=== PATIENT | female | born 1940 | race Hispanic/Latino ===

== ENCOUNTER 2017-09-21 15:26 | Emergency (ER) | payer OTHER, MEDICARE ==
--- OUTSIDE RECORDS SUMMARY | 2017-09-21 15:28 | XMS REPORT | Clinical Summary ---
:1940 Author Organization [facility] Address [address] [place] [address] Care Team Providers Name Role Phone Sukhdeep Maloney MD Primary Care Provider Allergies No Known Allergies Current Medications Prescription Sig. Disp. Refills Start Date End Date Status atorvastatin 11/20/2015 Active (LIPITOR) 20 MG tablet sodium,potassium,mag Dispense one 354 mL 0 03/17/2017 Active sulfates (SUPREP kit, pt to use BOWEL PREP KIT) as directed. 17.5-3.13-1.6 gram recon solnIndications: Colon cancer screening esomeprazole (NexIUM) Take 1 capsule 90 capsule 3 03/17/2017 03/17/19 Active 40 MG (40 mg total) 19 capsuleIndications: by mouth daily Gastroesophageal before reflux disease with breakfast. esophagitis esomeprazole (NexIUM) Take 1 capsule 90 capsule 3 01/10/2016 01/10/20 40 MG (40 mg total) 17 capsuleIndications: by mouth daily Gastroesophageal before reflux disease, breakfast. esophagitis presence not specified esomeprazole (NexIUM) Take 1 capsule 30 capsule 0 02/27/2017 03/17/19 Discontinued 40 MG (40 mg total) 18 capsuleIndications: by mouth daily Gastroesophageal before reflux disease with breakfast for esophagitis 30 days. Active Problems Not on file Encounters Date Type Specialty Care Team Description 04/04/2017 Telephone GastroenterKelly Ramírez MA 04/01/2017 Lab Lab Wolfgang Silverman MD 03/17/2017 Office Visit GastroenterWolfgang Don Gastroesophageal reflux disease, esophagitis presence not specified (Primary Dx); MD Art Colon cancer screening; Gastroesophageal reflux disease with esophagitis 02/27/2017 Orders Only Gastroenterology Kelly Mcclain, Gastroesophageal reflux MA disease with esophagitis (Primary Dx) after 09/20/2016 Family History Medical History Relation Name Comments Pancreatic cancer Brother Diabetes Father Heart disease Father Diabetes Mother Stroke Mother Lupus Sister Colon polyps Sister Relation Name Status Comments Brother Father Alive Mother Sister Alive Sister Social History Tobacco Use Types Packs/Day Years Used Date Never Smoker Smokeless Tobacco: Never Used Alcohol Use Drinks/Week oz/Week Comments Yes Sex Assigned at Date Recorded Not on file Last Filed Vital Signs Vital Sign Reading Time Taken Blood Pressure 157/87 03/17/2017 3:15 PM [facility] Pulse 92 03/17/2017 3:15 PM [facility] Temperature 36.7 C (98 F) 03/17/2017 3:15 PM [facility] Respiratory Rate - - Oxygen Saturation - - Inhaled Oxygen Concentration - - Weight 98 kg (216 lb) 03/17/2017 3:15 PM [facility] Height 172.7 cm (5' 8") 03/17/2017 3:15 PM [facility] Body Mass Index 32.84 03/17/2017 3:15 PM [facility] Plan of Treatment Health Maintenance Due Date Last Done Comments BREAST CANCER SCREENING 1992 COLON CANCER SCREENING 1992 SHINGRIX VACCINE (#1) 1992 ZOSTER VACCINE 2002 PNEUMOCOCCAL POLYSACCHARIDE VACCINE AGE 65 AND OVER 07/30/2007 PNEUMOCOCCAL-13 07/30/2007 INFLUENZA VACCINE 09/24/2017 Procedures Procedure Name Priority Date/Time Associated Diagnosis Comments SURGICAL PATHOLOGY Routine 04/01/2017 1:52 PM Results for this REQUEST [facility] procedure are in the results section. after 09/20/2016 Results Surgical pathology request (04/01/2017 1:52 PM) [facility] DEPARTMENT OF PATHOLOGY AND GENOMIC MEDICINE Surgical pathology report See link below for PDF [facility] DEPARTMENT OF Lab Report PATHOLOGY AND GENOMIC MEDICINE Result status This is Final Report to [facility] DEPARTMENT OF [id number] PATHOLOGY AND GENOMIC MEDICINE Performing Organization Address City/State/Zipcode Phone Number [facility] DEPARTMENT OF PATHOLOGY AND [address] [place] [address] GENOMIC MEDICINE after 09/20/2016 Insurance Payer Benefit Plan / Group Subscriber ID Type Phone Address MEDICARE MEDICARE PART A AND B xxxxxxxxxx Medicare [place], [place] AARP AARP SUPPLEMENT xxxxxxxxx-xx Commercial Home: [address] [phone] [place], [place] [id number]
[2017-09-21] MEDS ORDERED: METOCLOPRAMIDE 10 MG/2mL INJ ONE (16:11)
[2017-09-21] MEDS ORDERED: NA CHLORIDE 0.9% 1,000 ML ONE ×2 (16:12→18:23)
[2017-09-21 16:45] LABS: Absolute Lymphocytes (CBC) 0.3 K/uL (0.7-4.9); Absolute Monocytes 0.5 K/uL (0.1-1.3); Absolute Neutrophil 11.3 K/uL (1.8-8.0); Basophils % 0.2 % (0-1.3); Eosinophils % 0.5 % (0-4.4); Lymphocytes % 2.3 % (15.3-44.8); MCH 30.2 pg (27.0-35.0); MPV 8.5 fL (7.6-11.3); Monocytes % 3.9 % (3.3-12.3)
[2017-09-21 16:59] LABS: Albumin 3.5 g/dL (3.4-5.0); Bilirubin Direct 0.1 mg/dL (0-0.2); Bilirubin Total 0.6 mg/dL (0.2-1.0); Potassium 4.2 mmol/L (3.5-5.1); Protein, Total 7.7 g/dL (6.4-8.2)
[2017-09-21 17:23] LABS: Blood Morphology Comment NOT SEEN (NOT SEEN); Platelet Estimate ADEQ
--- NOTE | 2017-09-21 17:50 | RAD REPORT ---
EXAM DESCRIPTION: CT - Abdomen Pelvis W Contrast - 09/21/2017 5:33 pm CLINICAL HISTORY: Abdominal pain, nausea and vomiting COMPARISON: None. TECHNIQUE: Biphasic, helical CT imaging of the abdomen and pelvis was performed following 100 ml non -ionic IV contrast. No oral contrast was given. All CT scans are performed using dose optimization technique as appropriate and may include automated exposure control or mA/KV adjustment according to patient size. FINDINGS: No suspicious findings in the lung bases. The liver, spleen, and pancreas show no suspicious findings. Liver attenuation shows mild diffuse fat ty infiltration. No gallbladder or biliary tree finding. Symmetric renal function is seen with no hydronephrosis or suspicious renal mass. No pyelonephritis o r acute renal parenchymal process. Mostly contracted urinary bladder shows no suspicious finding. No dilated bowel loops or bowel wall thickening. Prominent colonic diverticulosis is present most pro nounced in the sigmoid. No diverticulitis. No free air, free fluid or inflammatory stranding. No mas s or bulky lymphadenopathy. A very small fat filled umbilical hernia is present. No adrenal abnormali ty. No suspicious bony findings. IMPRESSION: Prominent colonic diverticulosis without diverticulitis or other acute GI process. No pyelonephritis or acute finding. Liver attenuation is mildly fatty infiltrated.
[2017-09-21] MEDS ORDERED: LIDOCAINE VISCOUS 2% SOLN 15 ML UDC ONE (18:23)
[2017-09-21] MEDS ORDERED: MAGNE/ALUM HYDROXD 30 ML UCUP ONE (18:23)
--- NOTE | 2017-09-21 18:44 | ER ---
Nurse's Notes [facility] Name: Ashley Vaca Age: 77 yrs Sex: Female : 1940 Arrival Date: 09/21/2017 Time: 15:27 Bed 5 Private MD: Sukhdeep Maloney Diagnosis: Nausea and vomiting;Diarrhea, unspecified;Acute pharyngitis;Dehydration Presentation: 09/21 15:35 Presenting complaint: Patient states: N/V/D today. Transition of care: patient was not aj received from another setting of care. Onset of symptoms was September 21, 2017. Risk Assessment: Do you want to hurt yourself or someone else? Patient reports no desire to harm self or others. Initial Sepsis Screen: Does the patient meet any 2 criteria? No. Patient's initial sepsis screen is negative. Does the patient have a suspected source of infection? No. Patient's initial sepsis screen is negative. Care prior to arrival: None. 15:35 Method Of Arrival: Wheelchair aj 15:35 Acuity: LORENE 3 aj Triage Assessment: 15:36 General: Appears in no apparent distress. comfortable, Behavior is calm, cooperative, aj appropriate for age. Pain: Denies pain. Neuro: Level of Consciousness is awake, alert, obeys commands, Oriented to person, place, time, situation, Appropriate for age. Respiratory: Airway is patent Respiratory effort is even, unlabored, Respiratory pattern is regular, symmetrical. GI: Reports diarrhea, nausea, vomiting. Derm: Skin is intact, is healthy with good turgor, Skin is pink, warm \T\ dry. normal. Historical: - Allergies: 15:36 No Known Allergies; aj - Home Meds: 15:36 Unknown GERD med [Active]; aj - PMHx: 15:36 GERD; Hyperlipidemia; aj - PSHx: 15:36 back; aj - Immunization history:: Adult Immunizations up to date. - Social history:: Smoking status: Patient/guardian denies using tobacco. - Ebola Screening: : Patient negative for fever greater than or equal to 101.5 degrees Fahrenheit, and additional compatible Ebola Virus Disease symptoms Patient denies exposure to infectious person Patient denies travel to an Ebola-affected area in the 21 days before illness onset No symptoms or risks identified at this time. Screenin:49 Abuse screen: Denies threats or abuse. Denies injuries from another. Nutritional ph screening: No deficits noted. Tuberculosis screening: No symptoms or risk factors identified. Fall Risk None identified. Assessment: 15:45 General: Appears in no apparent distress. comfortable, well groomed, Behavior is calm, ph cooperative, appropriate for age, Denies fever. Pain: Complains of pain in throat. Neuro: Level of Consciousness is awake, alert, obeys commands, Oriented to person, place, time, situation. Cardiovascular: Capillary refill < 3 seconds Patient's skin is warm and dry. Respiratory: Airway is patent Respiratory effort is even, unlabored. GI: Abdomen is round non-distended, Bowel sounds present X 4 quads. Abd is soft and non tender X 4 quads. Reports diarrhea, nausea, vomiting, Patient currently denies abdominal pain. EENT: Throat is reddened Reports pain when swallowing. Derm: Skin is intact, is healthy with good turgor, Skin is pink, warm \T\ dry. Musculoskeletal: Circulation, motion, and sensation intact. Range of motion: intact in all extremities. 17:00 Reassessment: Patient appears in no apparent distress at this time. Patient and/or ph family updated on plan of care and expected duration. Pain level reassessed. Patient is alert, oriented x 3, equal unlabored respirations, skin warm/dry/pink. 18:00 Reassessment: Patient appears in no apparent distress at this time. Patient and/or ph family updated on plan of care and expected duration. Pain level reassessed. Patient is alert, oriented x 3, equal unlabored respirations, skin warm/dry/pink. 18:45 Reassessment: Patient appears in no apparent distress at this time. Patient and/or ph family updated on plan of care and expected duration. Pain level reassessed. Patient is alert, oriented x 3, equal unlabored respirations, skin warm/dry/pink. d/c pending completion of IV fluids. 19:15 Reassessment: Patient is to be discharge after NS is complete as requested by clive Goins [employer]. 20:05 Reassessment: DC instructions given to patient. Patient agree with the POC and to keep ph her self hydrated. Patient agree to comeback to the ER if continue to vomit or diarrhea that is not controlled at home. Patient agree to follow up with PCP. Vital Signs: 15:36 BP 135 / 69; Pulse 120; Resp 20; Temp 98.5; Pulse Ox 95% on R/A; Weight 99.79 kg; aj Height 5 ft. 9 in. (175.26 cm); 16:30 BP 137 / 72; Pulse 113; Resp 16; Pulse Ox 98% on R/A; ph 17:30 BP 141 / 76; Pulse 111; Resp 18; Pulse Ox 98% on R/A; ph 18:57 BP 140 / 75; Pulse 109; Resp 18; Pulse Ox 97% on R/A; ph 19:15 BP 152 / 74; Pulse 106; Resp 18; Pulse Ox 100% on R/A; Pain 0/10; ph 15:36 Body Mass Index 32.49 (99.79 kg, 175.26 cm) aj ED Course: 15:27 Patient arrived in ED. as 15:27 Sukhdeep Maloney MD is Private Physician. as 15:35 Triage completed. aj 15:36 Arm band placed on left wrist. Patient placed in an exam room. aj 15:43 Casey Santana NP is PHCP. pm1 15:43 Stanislaw Sousa MD is Attending Physician. pm1 16:05 Coty Alba RN is Primary Nurse. ph 16:20 Initial lab(s) drawn, by me, sent to lab. Strep swab sent to lab. Inserted saline lock: ph 22 gauge in left antecubital area, using aseptic technique. Blood collected. 16:36 Radiology exam delayed due to lab results not completed at this time. (BUN/Creatinine) kw1 IV insertion attempt and/or patient not having appropriate IV at this time. 16:49 Patient has correct armband on for positive identification. Placed in gown. Bed in low ph position. Call light in reach. Side rails up X 1. Pulse ox on. NIBP on. 16:49 No provider procedures requiring assistance completed. ph 16:54 EKG done, by ED staff, reviewed by Casey Santana NP. em1 17:33 CT completed. Patient moved to CT via wheelchair. Patient moved back from CT. cw1 17:33 CT Abd/Pelvis - W/Contrast In Process Unspecified. EDMS 18:43 Sukhdeep Maloney MD is Referral Physician. pm1 19:55 IV discontinued, intact, bleeding controlled, No redness/swelling at site. Pressure ph dressing applied. Administered Medications: 16:35 Drug: Reglan 5 mg Route: IVP; Site: left antecubital; ph 19:29 Follow up: Response: No adverse reaction; Nausea is decreased ph 16:35 Drug: NS 0.9% 1000 ml Route: IV; Rate: 1000 ml; Site: left antecubital; ph 19:28 Follow up: Response: No adverse reaction; IV Status: Completed infusion ph 18:31 Not Given (Other Intervention Used): NS 0.9% 1000 ml IV at 125 ml/hr continuous ph 18:31 Drug: GI Cocktail without - (Maalox Suspension 30 ml, Lidocaine Liquid 2 % 15 ph ml) Route: PO; 19:28 Follow up: Response: No adverse reaction; Pain is decreased ph 18:31 Drug: NS 0.9% 1000 ml Route: IV; Rate: 1000 ml; Site: left antecubital; ph 19:28 Follow up: Response: No adverse reaction; IV Status: Completed infusion ph Outcome: 18:44 Discharge ordered by . pm1 19:45 Patient left the ED. ph 19:45 Discharged to home ambulatory. 19:45 Condition: stable 19:45 Discharge instructions given to patient, Instructed on discharge instructions, follow up and referral plans. Demonstrated understanding of instructions, follow-up care, medications, Prescriptions given X 1. Signatures: Dispatcher [employer] EDMS Brenda Berg RN Breonna Mei Eric em1 Neyda George cw1 Coty Alba RN RN ph Marinas, Patrick, NP [employer] pm1 Charlene Werner kw1 Corrections: (The following items were deleted from the chart) 20:05 19:55 Condition: stable ph ph 20:05 19:55 Discharged to home ambulatory, ph ph 20:05 19:55 Discharge instructions given to patient, Instructed on discharge instructions, ph follow up and referral plans. Demonstrated understanding of instructions, follow-up care, medications, Prescriptions given X 1, ph 20:05 19:57 Patient left the ED. ph ph
--- NOTE | 2017-09-21 18:44 | EDPHYS ---
Physician Documentation [facility] Name: Ashley Vaca Age: 77 yrs Sex: Female : 1940 Arrival Date: 09/21/2017 Time: 15:27 Bed 5 Private MD: Sukhdeep Maloney ED Physician Stanislaw Sousa HPI: 09/21 17:43 This 77 yrs old Female presents to ER via Wheelchair with complaints of Sore pm1 throat, Vomiting and Diarrhea. 17:43 The patient presents to the emergency department with nausea, vomiting, 5 times since pm1 the onset of symptoms, 5 times today, diarrhea, 5 times since the onset of symptoms, 5 times today. Onset: The symptoms/episode began/occurred Vomiting and diarrhea onset this AM. Sore throat present for 1 week. Possible causes: sick contacts, from grandchildren. The symptoms are aggravated by nothing. The symptoms are alleviated by nothing. Associated signs and symptoms: Pertinent positives: sore throat, Pertinent negatives: abdominal pain, fever. The patient has not recently seen a physician. Patient with onset of sore throat 1 week ago. Today with onset of vomiting and diarrhea. 5 episodes of each. Patient believes that she might have contracted something from her grandchildren who were visiting. Patient with current pain to throat. Patient without any current abdominal pain but reports some cramping when she has diarrhea or vomiting . Historical: - Allergies: 15:36 No Known Allergies; aj - Home Meds: 15:36 Unknown GERD med [Active]; aj - PMHx: 15:36 GERD; Hyperlipidemia; aj - PSHx: 15:36 back; aj - Immunization history:: Adult Immunizations up to date. - Social history:: Smoking status: Patient/guardian denies using tobacco. - Ebola Screening: : Patient negative for fever greater than or equal to 101.5 degrees Fahrenheit, and additional compatible Ebola Virus Disease symptoms Patient denies exposure to infectious person Patient denies travel to an Ebola-affected area in the 21 days before illness onset No symptoms or risks identified at this time. ROS: 17:43 Constitutional: Negative for fever, chills, and weight loss, Eyes: Negative for injury, pm1 pain, redness, and discharge, Neck: Negative for injury, pain, and swelling. 17:43 Cardiovascular: Negative for chest pain, palpitations, and edema, Respiratory: Negative for shortness of breath, cough, wheezing, and pleuritic chest pain. 17:43 Back: Negative for injury and pain, : Negative for injury, bleeding, discharge, and swelling, MS/Extremity: Negative for injury and deformity, Skin: Negative for injury, rash, and discoloration, Neuro: Negative for headache, weakness, numbness, tingling, and seizure. 17:43 ENT: Positive for sore throat, Negative for ear pain, difficulty swallowing, difficulty handling secretions, hoarseness. 17:43 Abdomen/GI: Positive for nausea, vomiting, and diarrhea, Negative for abdominal pain. Exam: 17:43 Constitutional: This is a well developed, well nourished patient who is awake, alert, pm1 and in no acute distress. Head/Face: Normocephalic, atraumatic. Eyes: Pupils equal round and reactive to light, extra-ocular motions intact. Lids and lashes normal. Conjunctiva and sclera are non-icteric and not injected. Cornea within normal limits. Periorbital areas with no swelling, redness, or edema. Neck: Trachea midline, no thyromegaly or masses palpated, and no cervical lymphadenopathy. Supple, full range of motion without nuchal rigidity, or vertebral point tenderness. No Meningismus. 17:43 Chest/axilla: Normal chest wall appearance and motion. Nontender with no deformity. No lesions are appreciated. Cardiovascular: Regular rate and rhythm with a normal S1 and S2. No gallops, murmurs, or rubs. No pulse deficits. Respiratory: Lungs have equal breath sounds bilaterally, clear to auscultation and percussion. No rales, rhonchi or wheezes noted. No increased work of breathing, no retractions or nasal flaring. Back: No spinal tenderness. No costovertebral tenderness. Full range of motion. Skin: Warm, dry with normal turgor. Normal color with no rashes, no lesions, and no evidence of cellulitis. 17:43 MS/ Extremity: Pulses equal, no cyanosis. Neurovascular intact. Full, normal range of motion. 17:43 ENT: External ear(s): are unremarkable, Ear canal(s): are normal, TM's: are normal, Nose: is normal, Mouth: is normal, Posterior pharynx: Airway: normal, no evidence of obstruction, patent, Tonsils: are normal in appearance, no enlargement, no erythema, no exudate, no ulcerations, swelling, is not appreciated, erythema, that is mild, peritonsillar mass, is not appreciated, pooling of secretions, is not appreciated. 17:43 Abdomen/GI: Inspection: abdomen appears normal, Bowel sounds: normal, Palpation: abdomen is soft and non-tender, in all quadrants. 17:43 Neuro: Orientation: is normal, Motor: is normal, moves all fours. Vital Signs: 15:36 BP 135 / 69; Pulse 120; Resp 20; Temp 98.5; Pulse Ox 95% on R/A; Weight 99.79 kg; aj Height 5 ft. 9 in. (175.26 cm); 16:30 BP 137 / 72; Pulse 113; Resp 16; Pulse Ox 98% on R/A; ph 17:30 BP 141 / 76; Pulse 111; Resp 18; Pulse Ox 98% on R/A; ph 18:57 BP 140 / 75; Pulse 109; Resp 18; Pulse Ox 97% on R/A; ph 19:15 BP 152 / 74; Pulse 106; Resp 18; Pulse Ox 100% on R/A; Pain 0/10; ph 15:36 Body Mass Index 32.49 (99.79 kg, 175.26 cm) aj MDM: 15:46 Patient medically screened. pm1 18:30 ED course: Lipase elevated but lab does not correlate with physical assessment and pm1 presentation. CT scan negative for pancreatitis. Patient without any abdominal pain with palpation. Discussed findings with Dr. Sousa and agrees that patient does not have pancreatitis and can be discharged home to follow up with PCP. 18:42 Data reviewed: vital signs. Data interpreted: Pulse oximetry: on room air is 95 %. pm1 Interpretation: normal. Counseling: I had a detailed discussion with the patient and/or guardian regarding: the historical points, exam findings, and any diagnostic results supporting the discharge/admit diagnosis, lab results, radiology results, the need for outpatient follow up, to return to the emergency department if symptoms worsen or persist or if there are any questions or concerns that arise at home. 09/21 15:39 Order name: Basic Metabolic Panel; Complete Time: 17:12 snw 09/21 15:39 Order name: CBC with Diff; Complete Time: 17:26 snw 09/21 15:39 Order name: Hepatic Function; Complete Time: 17:12 snw 09/21 15:39 Order name: Lipase; Complete Time: 17:12 snw 09/21 15:59 Order name: Strep; Complete Time: 17:14 pm1 09/21 15:59 Order name: CT Abd/Pelvis - W/Contrast; Complete Time: 17:52 pm1 09/21 16:48 Order name: Manual Differential; Complete Time: 17:26 EDMS 09/21 17:13 Order name: Throat Culture EDMS 09/21 15:39 Order name: IV Saline Lock; Complete Time: 16:48 snw 09/21 15:39 Order name: Labs collected and sent; Complete Time: 16:48 snw 09/21 15:39 Order name: EKG; Complete Time: 15:40 w 09/21 15:39 Order name: EKG - Nurse/Tech; Complete Time: 16:47 snw Administered Medications: 16:35 Drug: Reglan 5 mg Route: IVP; Site: left antecubital; ph 19:29 Follow up: Response: No adverse reaction; Nausea is decreased ph 16:35 Drug: NS 0.9% 1000 ml Route: IV; Rate: 1000 ml; Site: left antecubital; ph 19:28 Follow up: Response: No adverse reaction; IV Status: Completed infusion ph 18:31 Not Given (Other Intervention Used): NS 0.9% 1000 ml IV at 125 ml/hr continuous ph 18:31 Drug: GI Cocktail without - (Maalox Suspension 30 ml, Lidocaine Liquid 2 % 15 ph ml) Route: PO; 19:28 Follow up: Response: No adverse reaction; Pain is decreased ph 18:31 Drug: NS 0.9% 1000 ml Route: IV; Rate: 1000 ml; Site: left antecubital; ph 19:28 Follow up: Response: No adverse reaction; IV Status: Completed infusion ph Disposition: 09/21/17 18:44 Discharged to Home. Impression: Nausea and vomiting, Diarrhea, unspecified, Acute pharyngitis, Dehydration. - Condition is Stable. - Discharge Instructions: Dehydration, Elderly, Diarrhea, Adult, Nausea and Vomiting, Adult, Pharyngitis. - Prescriptions for Zofran 4 mg Oral Tablet - take 1 tablet by ORAL route every 12 hours As needed; 20 tablet. - Medication Reconciliation Form, Thank You Letter, Antibiotic Education form. - Follow up: Emergency Department; When: As needed; Reason: Worsening of condition. Follow up: Sukhdeep Maloney MD; When: 2 - 3 days; Reason: Recheck today's complaints, Continuance of care, Re-evaluation by your physician. - Problem is new. - Symptoms have improved. Addendum: 09/25/2017 08:03 Co-signature as Attending Physician, Stanislaw Sousa MD I agree with the assessment and k dr plan of care. Signatures: Dispatcher [employer] EDMS Brenda Berg RN RN Stanislaw Cook MD MD [facility] Leonarda Maurice, EVENT MARKETING INTERN-C EVENT MARKETING INTERN-[employer] Coty Alba RN RN ph Casey Santana, [employer] TECH pm1 Corrections: (The following items were deleted from the chart) 09/21 18:44 18:44 09/21/2017 18:44 Discharged to Home. Impression: Nausea and vomiting; Diarrhea, pm1 unspecified; Acute pharyngitis. Condition is Stable. Forms are Medication Reconciliation Form, Thank You Letter, Antibiotic Education, Prescription Opioid Use. Follow up: Emergency Department; When: As needed; Reason: Worsening of condition. Follow up: Sukhdeep Maloney; When: 2 - 3 days; Reason: Recheck today's complaints, Continuance of care, Re-evaluation by your physician. Problem is new. Symptoms have improved. pm1 19:57 15:39 Urine Dipstick-Ancillary ordered. snw ph 19:57 18:44 09/21/2017 18:44 Discharged to Home. Impression: Nausea and vomiting; Diarrhea, ph unspecified; Acute pharyngitis; Dehydration. Condition is Stable. Forms are Medication Reconciliation Form, Thank You Letter, Antibiotic Education, Prescription Opioid Use. Follow up: Emergency Department; When: As needed; Reason: Worsening of condition. Follow up: Sukhdeep Maloney; When: 2 - 3 days; Reason: Recheck today's complaints, Continuance of care, Re-evaluation by your physician. Problem is new. Symptoms have improved. pm1
--- NOTE | 2017-09-21 19:56 | EKG ---
Test Date: 2017-09-21 Test Time: 16:51:08 Spice Miller: DEIDRE MEASUREMENT RESULTS: Intervals: Rate: 105 DC: 204 QRSD: 76 QT: 336 QTc: 444 Ramsey: P: 63 DC: 204 QRS: 46 T: 55 INTERPRETIVE STATEMENTS: Sinus tachycardia Otherwise normal ECG No previous ECG available for comparison Electronically Signed On 09-21-17 19:55:50 CDT by Randy Lovelace
== END 2017-09-21 19:57 | disposition home or self-care (01) ==
LOC: ER 15:26
DX: R11.2 Nausea with vomiting, unspecified (principal); R19.7 Diarrhea, unspecified; J02.9 Acute pharyngitis, unspecified; E86.0 Dehydration; E78.5 Hyperlipidemia, unspecified
CPT/HCPCS: 36415; 74177; 80048; 80076; 83690; 85025; 87070; 87081; 93005; J2765; J7030 ×2; Q9967; 96361; 96374; 99285

== ENCOUNTER 2018-03-30 08:31 | Day surgery (SDC) | payer OTHER, MEDICARE ==
--- NOTE | 2018-03-26 14:41 | RAD REPORT ---
EXAM DESCRIPTION: Ernestine Marks (2 Views)03/26/2018 2:35 pm CLINICAL HISTORY: Preop for thumb surgery COMPARISON: 2007 FINDINGS: The lungs appear clear of acute infiltrate. The heart is normal size IMPRESSION: No acute abnormalities displayed
[2018-03-26 14:55] LABS: Absolute Lymphocytes (CBC) 1.6 K/uL (0.7-4.9); Absolute Monocytes 0.6 K/uL (0.1-1.3); Absolute Neutrophil 3.6 K/uL (1.8-8.0); Basophils % 0.7 % (0-1.3); Eosinophils % 1.6 % (0-4.4); Hematocrit 42.7 % (36.0-45.0); Lymphocytes % 26.4 % (15.3-44.8); MPV 8.5 fL (7.6-11.3); Monocytes % 9.7 % (3.3-12.3); RBC Red Blood Cell Count 4.74 M/uL (3.86-4.86)
--- NOTE | 2018-03-26 17:03 | EKG ---
Test Date: 2018-03-26 Test Time: 14:44:31 Retail Coverage Merchandiser Lead: CHAY MEASUREMENT RESULTS: Intervals: Rate: 78 NV: 194 QRSD: 76 QT: 364 QTc: 414 [place]: P: 58 NV: 194 QRS: 1 T: 25 INTERPRETIVE STATEMENTS: Normal sinus rhythm Normal ECG Compared to ECG 09/21/2017 16:51:08 Sinus tachycardia no longer present Electronically Signed On 03-26-18 17:02:44 HEALTH CARE FACILITY ADMINISTRATOR by Randy Lovelace
--- OUTSIDE RECORDS SUMMARY | 2018-03-30 08:34 | XMS REPORT | Clinical Summary ---
:1940 Author Organization [facility] Address [address] [place] [address] Care Team Providers Name Role Phone Sukhdeep Maloney MD Primary Care Provider Allergies No Known Allergies Medications Medication Sig Dispensed Refills Start Date End Date Status atorvastatin (LIPITOR) 0 11/20/2015 Active 20 MG tablet sodium,potassium,mag Dispense one 354 mL 0 03/17/2017 Active sulfates (SUPREP BOWEL kit, pt to use PREP KIT) 17.5-3.13-1.6 as directed. gram recon solnIndications: Colon cancer screening esomeprazole (NexIUM) Take 1 capsule 90 capsule 3 03/17/2017 03/17/2018 40 MG (40 mg total) capsuleIndications: by mouth daily Gastroesophageal reflux before disease with breakfast. esophagitis Active Problems Not on file Encounters Date Type Specialty Care Team Description 04/04/2017 Telephone Gastroenterology Kelly Mcclain MA 04/01/2017 Lab Lab Wolfgang Silverman MD after 03/29/2017 Family History Medical History Relation Name Comments [...] Assigned at Date Recorded Not on file Job Start Date Occupation Industry Not on file Not on file Not on file Travel History Travel Start Travel End No recent travel history available. 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) [facility] DEPARTMENT OF PATHOLOGY AND GENOMIC MEDICINE Surgical pathology report See link below for PDF [facility] DEPARTMENT OF Lab Report PATHOLOGY AND GENOMIC MEDICINE Result status This is Final Report to [facility] DEPARTMENT OF [id number] PATHOLOGY AND GENOMIC MEDICINE Performing Organization Address City/State/Zipcode Phone Number [facility] DEPARTMENT OF PATHOLOGY AND [address] [place] [address] GENOMIC MEDICINE after 03/29/2017 Insurance Payer Benefit Plan / Group Subscriber ID Type Phone Address MEDICARE MEDICARE PART A AND B xxxxxxxxxx Medicare [place], [place] AARP AARP SUPPLEMENT xxxxxxxxx-xx Commercial Advance Directives Patient has advance care planning documents on file. For more information, please contact:Eliazar Buckner[address] [place] [address]
[2018-03-30] MEDS ORDERED: Ringers Lactate 1,000 ML IV ONE (09:07)
[2018-03-30] MEDS ORDERED: LIDOCAINE 2% MPF 5 ML VIAL ONE (09:18)
[2018-03-30] MEDS ORDERED: PROPOFOL 200 MG/20 ML VIAL IV ONE (09:18)
[2018-03-30] MEDS ORDERED: MIDAZOLAM HCL 2 MG/2 ML INJ ONE (09:18)
[2018-03-30] MEDS ORDERED: KETOROLAC 30 MG/ML INJ ONE (09:18)
[2018-03-30] MEDS ORDERED: FENTANYL CITR 100 MCG/2 ML ONE (09:18)
[2018-03-30] MEDS ORDERED: CEFAZOLIN 1GM (PREMIX IV) 1 GM/50 ML BAG ONE (09:22)
[2018-03-30] MEDS ORDERED: BUPIVACAINE 0.5% PF 10 ML VIAL ONE (09:23)
[2018-03-30] MEDS ORDERED: HYDROCODONE/APAP 7.5/325 MG TAB ONE (11:38)
--- NOTE | 2018-03-30 21:16 | OP ---
Date of Procedure: 03/30/2018 Surgeon: Cirilo Mitchell MD Preoperative Diagnosis: Symptomatic left thumb mass. Postoperative Diagnosis: Symptomatic left thumb mass. Procedure: Excision of left thumb mass. Estimated Blood Loss: Minimal. Specimen: A small nodule in the left thumb. Findings: As above. Anesthesia: General. Complications: None. Disposition: The patient tolerated the procedure in stable condition and was taken to Recovery in go od general condition. Description Of Procedure: The patient was brought to the OR and placed in supine position. General anesthesia was begun. The patient was prepped and draped in usual sterile fashion. A 15-blade was u sed to make a 1-cm incision on the pulp of the distal phalanx of the left thumb. Subcutaneous tissue s were divided. Deep in the subcutaneous tissue, a small 1-mm nodule was identified, excised, and se nt to Pathology as specimen. Wound was irrigated. Bleeding was controlled with cautery. A 4-0 nylo n was used to close the skin, and then Marcaine 0.5% was infiltrated locally for postoperative pain c ontrol. Sterile dressing was applied. The patient was awakened and taken to Recovery in good genera l condition. Discharge Note: The patient will go to Day Surgery and home when stable. Disposition: Home. Condition: Stable. Discharge Instructions: Resume home medications and diet. Activity as tolerated. No heavy lifting. Remove outer dressing in 2 days. Shower. Keep wound clean and dry. Neosporin and Band-Aid to wou nd daily. Tylenol No. 3 one tablet p.o. q.4 hours p.r.n. pain. Follow up in my office in 10 days. Call for appointment. ELEUTERIO/FILOMENA Voice ID: [id number] Report ID: [id number]
== END 2018-03-30 12:35 | disposition home or self-care (01) ==
LOC: OR 08:31
PROVIDERS: ATTEND Surgery
PROC: 0JBK0ZX Excision of Left Hand Subcutaneous Tissue and Fascia, Open Approach, Diagnostic (ICD-10-PCS; principal; 2018-03-30 10:00)
DX: D23.62 Other benign neoplasm of skin of left upper limb, including shoulder (principal)
CPT/HCPCS: 93005; 85025; 36415; 88305; 71046; 26115; J2704; J2250; J3010; J0690; 88304